=== PATIENT | female | born 1985 | race Hispanic/Latino ===

== ENCOUNTER 2021-09-02 16:57 | Inpatient (IN) | payer BC ==
[~2021-09-02] VITALS: Ht 160 cm; Wt 79.4 kg
[2021-09-02] MEDS ORDERED: ONDANSETRON HCL INJ 2MG/ML 2ML 2 MG/ML VIAL IV STA (17:20)
[2021-09-02] MEDS ORDERED: SODIUM CHLORIDE 0.9% 1000ML 1,000 ML IV SCH (17:30)
[2021-09-02] MEDS ORDERED: Morphine 2mg Syringe 2 MG/ML SYR IV ONE (17:30)
[2021-09-02] MEDS ORDERED: SODIUM CHLORIDE 0.9% 1000ML 1,000 ML ONE (17:36)
[2021-09-02] MEDS ORDERED: Morphine 2mg Syringe 2 MG/ML SYR ONE (17:38)
[2021-09-02 17:44] LABS: ALBUMIN 3.8 g/dL (3.5-5.0); ALBUMIN/GLOBULIN RATIO 0.5 (0.8-2.0); ALKALINE PHOSPHATASE 54 IU/L (40-150); ANION GAP 19.8 mmol/L (8-16); BLOOD UREA NITROGEN 9 mg/dL (7-26); BUN/CREATININE RATIO 13 (6-25); CALCIUM 9.3 mg/dL (8.4-10.2); CARBON DIOXIDE 16 mmol/L (22-29); CHLORIDE 94 mmol/L (98-107); CREATININE, SERUM 0.67 mg/dL (0.57-1.11); EST GLOMERULAR FILTRATION RATE 100 ML/MIN (60-); GLUCOSE 356 mg/dL (74-118); POTASSIUM 3.8 mmol/L (3.5-5.1); SODIUM 126 mmol/L (136-145)
[2021-09-02] MEDS ORDERED: SODIUM CHLORIDE 0.9% 1000ML 1,000 ML IV ONE ×2 (17:45→18:30)
[2021-09-02 17:49] LABS: AMYLASE 839 U/L (25-125)
[2021-09-02 18:10] LABS: ALANINE AMINOTRANSFERASE < 30 IU/L (0-55)
[2021-09-02 18:13] LABS: CREATINE KINASE MB 0.6 ng/mL (0-5.0)
[2021-09-02] MEDS ORDERED: IOPAMIDOL 370 MG/ML 200 ML INFUS..BTL INJ ONE (18:13)
[2021-09-02] MEDS ORDERED: SODIUM CHLORIDE 0.9% 50ML 50 ML ONE (18:13)
[2021-09-02 18:17] LABS: BASOPHILS % 0.3 % (0.0-1.0); EOSINOPHILS # (AUTO) 0.1 (0.0-0.4); EOSINOPHILS % 0.7 % (0.0-6.0); LYMPHOCYTES # (AUTO) 2.5 (1.0-3.2); LYMPHOCYTES % 22.3 % (18.0-39.1); MONOCYTES # (AUTO) 0.6 (0.2-0.8); NEUTROPHILS # (AUTO) 7.9 (2.1-6.9); NEUTROPHILS % 70.8 % (38.7-80.0)
[2021-09-02 18:19] LABS: HEMOGLOBIN 14.7 g/dL (12.0-16.0); RED BLOOD COUNT 4.79 x10e6/uL (3.6-5.1)
[2021-09-02 18:20] LABS: HEMATOCRIT 37.8 % (34.2-44.1); MEAN CORPUSCULAR HEMOGLOBIN 30.7 pg (28-32); MEAN CORPUSCULAR HGB CONC 98.9 g/dL (31-35); MEAN CORPUSCULAR VOLUME 78.9 fL (81-99); PLATELET COUNT 259 x10e3/uL (140-360); RED CELL DISTRIBUTION WIDTH 13.3 % (11.7-14.4)
[2021-09-02 18:27] LABS: LIPASE 2840 U/L (8-78)
[2021-09-02] MEDS ORDERED: HYDROMORPHONE 1MG/1ML INJ IV STA (18:28)
[2021-09-02] MEDS ORDERED: INSULIN REGULAR, HUMAN 3ML VL 100 UNIT in SODIUM CHLORIDE 0.9% 100 ML IV SCH ×2 (18:30)
[2021-09-02] MEDS ORDERED: MAGNESIUM SULF 1GRAM/DEXTROSE 100 ML IV PRN (18:30)
[2021-09-02] MEDS ORDERED: DEXTROSE 5%/0.45% SOD CHL 1,000 ML IV SCH (18:30)
[2021-09-02] MEDS ORDERED: Morphine 4mg Syringe 4 MG/ML INJ IV PRN (19:00)
[2021-09-02] MEDS: SODIUM CHLORIDE 0.9% 1000ML 1,000 ML IV SCH ×2 (19:00→22:50)
[2021-09-02] MEDS ORDERED: DEXTROSE 50% SYRINGE 50 ML IV PRN (19:15)
[2021-09-02] MEDS ORDERED: POTASSIUM CHLORIDE 20MEQ/100ML 100 ML INJ PRN (19:15)
[2021-09-02 19:16] LABS: CHOL/HDL RATIO 46.3 (3.0-3.6); CHOLESTEROL 694 MD/DL (0-199); HDL CHOLESTEROL 15 MG/DL (40-60)
[2021-09-02 19:33] LABS: TRIGLYCERIDES 4970 MG/DL (0-149)
[2021-09-02 20:52] LABS: CLARITY,URINE CLEAR (CLEAR); COLOR,URINE YELLOW (YELLOW); KETONES,URINE 2+ (NEGATIVE); LEUKOCYTE ESTERASE ,URINE NEGATIVE (NEGATIVE); NITRITE,URINE NEGATIVE (NEGATIVE); PROTEIN,URINE DIPSTICK 1+ (NEGATIVE)
[2021-09-02 20:53] LABS: URINE UROBILINOGEN 0.2 mg/dL (0.2 - 1)
[2021-09-02 20:56] LABS: BACTERIA,URINE FEW /HPF; EPITHELIAL CELLS,URINE FEW /LPF; RBC,URINE 0-5 /HPF (0-5); WBC,URINE (MAN) 0-5 /HPF (0-5)
[2021-09-02] MEDS ORDERED: POTASSIUM CHLORIDE 10MEQ EA PO PRN (21:00)
[2021-09-02] MEDS: FENOFIBRATE 145 MG TAB PO SCH (21:30)
[2021-09-02] MEDS: ONDANSETRON HCL INJ 2MG/ML 2ML 2 MG/ML VIAL IV PRN (21:36)
[2021-09-02] MEDS: HYDROMORPHONE 1MG/1ML INJ IV PRN (21:38)
[2021-09-02 22:58] LABS: ANION GAP 12.8 mmol/L (8-16); CALCIUM 7.3 mg/dL (8.4-10.2); CREATININE, SERUM 0.51 mg/dL (0.57-1.11); MAGNESIUM 1.5 MG/DL (1.3-2.1); POTASSIUM 3.8 mmol/L (3.5-5.1)
[2021-09-02 23:34] LABS: CREATINE KINASE < 7 IU/L (29-168)
[2021-09-02 23:40] VITALS: BP 141/82
[2021-09-03] VITALS (20 sets, daily range): BP systolic 86–164; BP diastolic 48–112
[2021-09-03] MEDS: DEXTROSE 5%/0.45% SOD CHL 1,000 ML IV SCH ×3 (02:03→20:59)
[2021-09-03] MEDS ORDERED: INSULIN REGULAR IN 0.9 % NACL 100 ML IV ONE (02:19)
[2021-09-03] MEDS: HYDROMORPHONE 1MG/1ML INJ IV PRN ×3 (04:21→21:00)
[2021-09-03] MEDS: ONDANSETRON HCL INJ 2MG/ML 2ML 2 MG/ML VIAL IV PRN ×3 (04:21→21:00)
[2021-09-03 05:07] LABS: ANION GAP 15.5 mmol/L (8-16); BLOOD UREA NITROGEN < 5 mg/dL (7-26); BUN/CREATININE RATIO 8 (6-25); CALCIUM 7.6 mg/dL (8.4-10.2); CARBON DIOXIDE 17 mmol/L (22-29); CHLORIDE 102 mmol/L (98-107); CREATININE, SERUM 0.61 mg/dL (0.57-1.11); EST GLOMERULAR FILTRATION RATE 112 ML/MIN (60-); GLUCOSE 174 mg/dL (74-118); MAGNESIUM 1.5 MG/DL (1.3-2.1); POTASSIUM 3.5 mmol/L (3.5-5.1); SODIUM 131 mmol/L (136-145)
[2021-09-03 05:50] LABS: BASOPHILS % 0.3 % (0.0-1.0); EOSINOPHILS % 0.2 % (0.0-6.0); HEMATOCRIT 33.6 % (34.2-44.1); HEMOGLOBIN 11.8 g/dL (12.0-16.0); LYMPHOCYTES # (AUTO) 1.8 (1.0-3.2); LYMPHOCYTES % 15.4 % (18.0-39.1); MEAN CORPUSCULAR HEMOGLOBIN 28.2 pg (28-32); MEAN CORPUSCULAR HGB CONC 35.1 g/dL (31-35); MEAN CORPUSCULAR VOLUME 80.4 fL (81-99); MONOCYTES # (AUTO) 0.5 (0.2-0.8); MONOCYTES % 3.9 % (4.4-11.3); NEUTROPHILS # (AUTO) 9.2 (2.1-6.9); NEUTROPHILS % 79.5 % (38.7-80.0); PLATELET COUNT 209 x10e3/uL (140-360); RED BLOOD COUNT 4.18 x10e6/uL (3.6-5.1); RED CELL DISTRIBUTION WIDTH 13.7 % (11.7-14.4)
[2021-09-03 06:15] LABS: ALANINE AMINOTRANSFERASE 19 IU/L (0-55); ALBUMIN/GLOBULIN RATIO 0.7 (0.8-2.0); ALKALINE PHOSPHATASE 45 IU/L (40-150); AMYLASE 188 U/L (25-125); ANION GAP 13.1 mmol/L (8-16); CALCIUM 7.7 mg/dL (8.4-10.2); CARBON DIOXIDE 20 mmol/L (22-29); CHLORIDE 101 mmol/L (98-107); CREATININE, SERUM 0.57 mg/dL (0.57-1.11); EST GLOMERULAR FILTRATION RATE 121 ML/MIN (60-); GLUCOSE 188 mg/dL (74-118); LIPASE 321 U/L (8-78); POTASSIUM 3.1 mmol/L (3.5-5.1); SODIUM 131 mmol/L (136-145)
[2021-09-03 06:16] LABS: BUN/CREATININE RATIO 9 (6-25)
[2021-09-03 06:43] LABS: CREATINE KINASE MB 0.9 ng/mL (0-5.0)
[2021-09-03 07:30] LABS: BLOOD UREA NITROGEN < 5 mg/dL (7-26)
[2021-09-03] MEDS: FENOFIBRATE 145 MG TAB PO SCH ×2 (08:02→09:00)
[2021-09-03] MEDS: INSULIN REGULAR, HUMAN 3ML VL 100 UNIT in SODIUM CHLORIDE 0.9% 100 ML IV PRN ×2 (08:03)
[2021-09-03] MEDS ORDERED: TRICOR145 MG PO (08:51)
[2021-09-03] MEDS ORDERED: METFORMIN HCL500 MG PO (08:51)
[2021-09-03] MEDS: POTASSIUM CHLORIDE 20MEQ/100ML 200 ML IV PRN (10:28)
[2021-09-03 10:58] LABS: ANION GAP 13.5 mmol/L (8-16); BLOOD UREA NITROGEN < 5 mg/dL (7-26); CALCIUM 7.7 mg/dL (8.4-10.2); CARBON DIOXIDE 21 mmol/L (22-29); CHLORIDE 102 mmol/L (98-107); CREATININE, SERUM 0.53 mg/dL (0.57-1.11); EST GLOMERULAR FILTRATION RATE 131 ML/MIN (60-); GLUCOSE 143 mg/dL (74-118); MAGNESIUM 1.9 MG/DL (1.3-2.1); SODIUM 134 mmol/L (136-145)
[2021-09-03 10:59] LABS: BUN/CREATININE RATIO 9 (6-25)
[2021-09-03 11:00] LABS: POTASSIUM 2.5 mmol/L (3.5-5.1)
[2021-09-03 15:44] LABS: ANION GAP 13.5 mmol/L (8-16); BLOOD UREA NITROGEN < 5 mg/dL (7-26); CALCIUM 7.9 mg/dL (8.4-10.2); CARBON DIOXIDE 22 mmol/L (22-29); CHLORIDE 103 mmol/L (98-107); CREATININE, SERUM 0.58 mg/dL (0.57-1.11); EST GLOMERULAR FILTRATION RATE 118 ML/MIN (60-); GLUCOSE 115 mg/dL (74-118); MAGNESIUM 2.1 MG/DL (1.3-2.1); POTASSIUM 3.5 mmol/L (3.5-5.1); SODIUM 135 mmol/L (136-145)
[2021-09-03 15:46] LABS: BUN/CREATININE RATIO 9 (6-25)
[2021-09-03 22:03] LABS: % IRON SATURATION 14 % (15-50); IRON 43 ug/dL (50-170); TOTAL IRON BINDING CAPACITY 318 ug/dL (261-478); TRANSFERRIN 227 mg/dL (180-382)
[2021-09-04] VITALS (11 sets, daily range): BP systolic 84–121; BP diastolic 49–82
[2021-09-04] MEDS: HYDROMORPHONE 1MG/1ML INJ IV PRN ×4 (01:42→21:28)
[2021-09-04] MEDS: ONDANSETRON HCL INJ 2MG/ML 2ML 2 MG/ML VIAL IV PRN ×3 (01:43→21:28)
[2021-09-04] MEDS: DEXTROSE 5%/0.45% SOD CHL 1,000 ML IV SCH (05:00)
[2021-09-04 05:37] LABS: BASOPHILS % 0.2 % (0.0-1.0); EOSINOPHILS # (AUTO) 0.1 (0.0-0.4); EOSINOPHILS % 0.6 % (0.0-6.0); HEMATOCRIT 33.2 % (34.2-44.1); HEMOGLOBIN 10.6 g/dL (12.0-16.0); LYMPHOCYTES # (AUTO) 3.1 (1.0-3.2); LYMPHOCYTES % 29.6 % (18.0-39.1); MEAN CORPUSCULAR HEMOGLOBIN 26.9 pg (28-32); MEAN CORPUSCULAR HGB CONC 31.9 g/dL (31-35); MEAN CORPUSCULAR VOLUME 84.3 fL (81-99); MONOCYTES # (AUTO) 0.8 (0.2-0.8); MONOCYTES % 7.1 % (4.4-11.3); NEUTROPHILS # (AUTO) 6.5 (2.1-6.9); NEUTROPHILS % 61.9 % (38.7-80.0); PLATELET COUNT 202 x10e3/uL (140-360); RED BLOOD COUNT 3.94 x10e6/uL (3.6-5.1)
[2021-09-04 06:09] LABS: ALANINE AMINOTRANSFERASE 28 IU/L (0-55); ALBUMIN 2.8 g/dL (3.5-5.0); ALBUMIN/GLOBULIN RATIO 0.8 (0.8-2.0); ALKALINE PHOSPHATASE 49 IU/L (40-150); AMYLASE 79 U/L (25-125); ANION GAP 10.9 mmol/L (8-16); BLOOD UREA NITROGEN < 5 mg/dL (7-26); CALCIUM 7.9 mg/dL (8.4-10.2); CARBON DIOXIDE 23 mmol/L (22-29); CHLORIDE 104 mmol/L (98-107); CREATININE, SERUM 0.54 mg/dL (0.57-1.11); EST GLOMERULAR FILTRATION RATE 128 ML/MIN (60-); GLUCOSE 108 mg/dL (74-118); LIPASE 88 U/L (8-78); SODIUM 135 mmol/L (136-145)
[2021-09-04 06:16] LABS: BUN/CREATININE RATIO 9 (6-25)
[2021-09-04 06:17] LABS: POTASSIUM 2.9 mmol/L (3.5-5.1)
[2021-09-04] MEDS ORDERED: POTASSIUM CHLORIDE 20MEQ/100ML 20 MEQ in POTASSIUM CHLORIDE 20MEQ/100ML 100 ML IV ONE (06:46)
[2021-09-04] MEDS ORDERED: POTASSIUM CHLORIDE 20MEQ/100ML 100 ML IV ONE (07:00)
[2021-09-04] MEDS: INSULIN REGULAR, HUMAN 3ML VL 100 UNIT in SODIUM CHLORIDE 0.9% 100 ML IV PRN ×2 (07:38)
[2021-09-04] MEDS: FENOFIBRATE 145 MG TAB PO SCH (08:04)
[2021-09-04] MEDS ORDERED: SODIUM CHLORIDE 0.9% 1000ML 1,000 ML ONE (10:50)
[2021-09-04] MEDS: SODIUM CHLORIDE 0.9% 1000ML 1,000 ML IV SCH ×2 (11:15→23:50)
[2021-09-04] MEDS ORDERED: INSULIN GLARGINE 100 UNITS/ML VIAL SQ SCH (11:30)
[2021-09-04] MEDS ORDERED: DEXTROSE 50% SYRINGE 50 ML IV PRN (12:15)
[2021-09-04] MEDS: POTASSIUM CHLORIDE 20MEQ/100ML 200 ML IV PRN (12:19)
[2021-09-04 14:18] LABS: ANION GAP 11.1 mmol/L (8-16); BLOOD UREA NITROGEN < 5 mg/dL (7-26); BUN/CREATININE RATIO 9 (6-25); CALCIUM 7.9 mg/dL (8.4-10.2); CARBON DIOXIDE 22 mmol/L (22-29); CHLORIDE 106 mmol/L (98-107); CREATININE, SERUM 0.57 mg/dL (0.57-1.11); EST GLOMERULAR FILTRATION RATE 121 ML/MIN (60-); GLUCOSE 143 mg/dL (74-118); POTASSIUM 3.1 mmol/L (3.5-5.1); SODIUM 136 mmol/L (136-145)
[2021-09-04] MEDS: INSULIN REGULAR, HUMAN 100 UNIT/1 ML SQ SCH ×2 (17:37→21:25)
[2021-09-04 20:50] LABS: ANION GAP 13.5 mmol/L (8-16); BLOOD UREA NITROGEN < 5 mg/dL (7-26); CALCIUM 7.9 mg/dL (8.4-10.2); CARBON DIOXIDE 21 mmol/L (22-29); CHLORIDE 106 mmol/L (98-107); CREATININE, SERUM 0.61 mg/dL (0.57-1.11); EST GLOMERULAR FILTRATION RATE 112 ML/MIN (60-); GLUCOSE 202 mg/dL (74-118); POTASSIUM 3.5 mmol/L (3.5-5.1); SODIUM 137 mmol/L (136-145)
[2021-09-04 20:54] LABS: BUN/CREATININE RATIO 8 (6-25)
[2021-09-05] VITALS (8 sets, daily range): BP systolic 110–133; BP diastolic 67–84
[2021-09-05] MEDS: ONDANSETRON HCL INJ 2MG/ML 2ML 2 MG/ML VIAL IV PRN ×3 (02:16→16:00)
[2021-09-05] MEDS: HYDROMORPHONE 1MG/1ML INJ IV PRN ×4 (02:17→22:16)
[2021-09-05 05:22] LABS: ANION GAP 11.5 mmol/L (8-16); CALCIUM 8.3 mg/dL (8.4-10.2); CARBON DIOXIDE 22 mmol/L (22-29); CHLORIDE 107 mmol/L (98-107); EST GLOMERULAR FILTRATION RATE 114 ML/MIN (60-); GLUCOSE 193 mg/dL (74-118); MAGNESIUM 1.9 MG/DL (1.3-2.1); POTASSIUM 3.5 mmol/L (3.5-5.1); SODIUM 137 mmol/L (136-145)
[2021-09-05 05:24] LABS: BUN/CREATININE RATIO 8 (6-25)
[2021-09-05 05:40] LABS: BLOOD UREA NITROGEN < 5 mg/dL (7-26)
[2021-09-05 06:03] LABS: AMYLASE 30 U/L (25-125); LIPASE 55 U/L (8-78)
[2021-09-05] MEDS: INSULIN REGULAR, HUMAN 100 UNIT/1 ML SQ SCH ×4 (07:30→21:36)
[2021-09-05] MEDS: IRON SUCROSE 100 MG in SODIUM CHLORIDE 0.9% 100 ML 100 ML IV SCH (08:51)
[2021-09-05] MEDS: FENOFIBRATE 145 MG TAB PO SCH (08:51)
[2021-09-06] VITALS: BP 148/84
[2021-09-06 04:00] VITALS: BP 132/90
[2021-09-06] MEDS: HYDROMORPHONE 1MG/1ML INJ IV PRN ×2 (04:25→09:30)
[2021-09-06] MEDS: INSULIN REGULAR, HUMAN 100 UNIT/1 ML SQ SCH ×2 (07:30→11:50)
[2021-09-06 07:59] VITALS: BP 145/87
[2021-09-06 08:24] VITALS: BP 145/87
[2021-09-06] MEDS: IRON SUCROSE 100 MG in SODIUM CHLORIDE 0.9% 100 ML 100 ML IV SCH (09:00)
[2021-09-06] MEDS: FENOFIBRATE 145 MG TAB PO SCH (09:18)
[2021-09-06] MEDS ORDERED: TRAMADOL HCL 50 MG TAB PO PRN (10:15)
[2021-09-06 11:13] VITALS: BP 127/91
[2021-09-06] MEDS ORDERED: NOVOLIN N100 UNIT/1 SC (12:13)
[2021-09-06] MEDS ORDERED: ONDANSETRON HCL 4 MG ORAL DISINTEGRATING TAB PO PRN (12:45)
[2021-09-07] MEDS ORDERED: PANTOPRAZOLE SOD 40 MG TABEC PO SCH (07:30)
== END 2021-09-06 13:20 | disposition home or self-care (01) | DRG 438 ==
LOC: ER 17:05 → ERHOLD 18:20 → ICU 23:24 → IMCU 09-03 13:45 → MED/SURG3 09-05 15:33
PROVIDERS: ADMIT Internal Medicine; ATTEND Internal Medicine
DX: K85.90 Acute pancreatitis without necrosis or infection, unspecified (principal); E11.10 Type 2 diabetes mellitus with ketoacidosis without coma; E87.1 Hypo-osmolality and hyponatremia; B17.9 Acute viral hepatitis, unspecified; Z79.4 Long term (current) use of insulin; Z20.822 Contact with and (suspected) exposure to COVID-19; E87.6 Hypokalemia
CPT/HCPCS: 36415; 51700; 71045; 74177; 80048; 80053; 80061; 81001; 82150; 82550; 82553; 82607; 82746; 82948; 83036; 83540; 83605; 83690; 83735; 84466; 84478; 84484; 84702; 85025; 85045; 87040; 93005; 94799; 96372; 99284; J1170; J1756; J1815; J1817; J2270; J2405; J3475; J3480; J7030; J7050; Q9967; U0002

== ENCOUNTER 2022-03-17 20:58 | Inpatient (IN) | payer BC ==
[~2022-03-17] VITALS: Ht 160 cm; Wt 81.6 kg
[~2022-03-17 20:58] MED LIST: METFORMIN HCL500 MG PO; NOVOLIN N100 UNIT/1 SC; TRICOR145 MG PO
[2022-03-17] MEDS ORDERED: ONDANSETRON HCL INJ 2MG/ML 2ML 2 MG/ML VIAL IV STA ×2 (21:05→23:48)
[2022-03-17] MEDS ORDERED: Morphine 4mg INJECTION 4 MG/ML INJ IV ONE (21:15)
[2022-03-17] MEDS ORDERED: SODIUM CHLORIDE 0.9% 1000ML 1,000 ML IV ONE (21:15)
[2022-03-17 21:54] LABS: BASOPHILS % 0.4 % (0.0-1.0); EOSINOPHILS # (AUTO) 0.2 (0.0-0.4); EOSINOPHILS % 2.1 % (0.0-6.0); HEMATOCRIT 35.4 % (34.2-44.1); HEMOGLOBIN 15.7 g/dL (12.0-16.0); LYMPHOCYTES # (AUTO) 1.7 (1.0-3.2); LYMPHOCYTES % 22.7 % (18.0-39.1); MEAN CORPUSCULAR HEMOGLOBIN 36.7 pg (28-32); MEAN CORPUSCULAR HGB CONC 44.4 g/dL (31-35); MEAN CORPUSCULAR VOLUME 82.7 fL (81-99); MONOCYTES # (AUTO) 0.8 (0.2-0.8); MONOCYTES % 10.1 % (4.4-11.3); NEUTROPHILS # (AUTO) 4.9 (2.1-6.9); NEUTROPHILS % 64.2 % (38.7-80.0); PLATELET COUNT 236 x10e3/uL (140-360); RED BLOOD COUNT 4.28 x10e6/uL (3.6-5.1); RED CELL DISTRIBUTION WIDTH 13.6 % (11.7-14.4)
[2022-03-17 22:07] LABS: CLARITY,URINE CLEAR (CLEAR); COLOR,URINE YELLOW (YELLOW); KETONES,URINE TRACE (NEGATIVE); LEUKOCYTE ESTERASE ,URINE NEGATIVE (NEGATIVE); NITRITE,URINE NEGATIVE (NEGATIVE); PROTEIN,URINE DIPSTICK NEGATIVE (NEGATIVE); URINE UROBILINOGEN 0.2 mg/dL (0.2 - 1)
[2022-03-17 22:13] LABS: ALBUMIN 3.7 g/dL (3.5-5.0); ALBUMIN/GLOBULIN RATIO 0.4 (0.8-2.0); ANION GAP 23.8 mmol/L (8-16); CALCIUM 9.4 mg/dL (8.4-10.2); CARBON DIOXIDE 15 mmol/L (22-29); CHLORIDE 91 mmol/L (98-107); GLUCOSE 295 mg/dL (74-118); POTASSIUM 3.8 mmol/L (3.5-5.1); SODIUM 126 mmol/L (136-145)
[2022-03-17 22:16] LABS: EPITHELIAL CELLS,URINE MANY /LPF
[2022-03-17 22:17] LABS: BACTERIA,URINE FEW /HPF; MUCUS,URINE MANY (RARE); RBC,URINE 0-5 /HPF (0-5); WBC,URINE (MAN) 0-5 /HPF (0-5)
[2022-03-17 23:01] LABS: ALANINE AMINOTRANSFERASE 34 IU/L (0-55)
[2022-03-17] MEDS ORDERED: SODIUM CHLORIDE 0.9% 1000ML 1,000 ML IV STA (23:09)
[2022-03-17 23:17] LABS: CREATININE, SERUM < 0.30 mg/dL (0.57-1.11)
[2022-03-17 23:24] LABS: BLOOD UREA NITROGEN < 10 mg/dL (7-26); BUN/CREATININE RATIO 33 (6-25)
[2022-03-17] MEDS ORDERED: Morphine 4mg INJECTION 4 MG/ML INJ ONE (23:59)
[2022-03-17] MEDS ORDERED: ONDANSETRON HCL INJ 2MG/ML 2ML 2 MG/ML VIAL ONE (23:59)
[2022-03-18] VITALS (11 sets, daily range): BP systolic 146–160; BP diastolic 83–92
[2022-03-18] MEDS ORDERED: Morphine 4mg INJECTION 4 MG/ML INJ IV ONE
[2022-03-18] MEDS ORDERED: DEXTROSE 50% SYRINGE 50 ML IV PRN (02:00)
[2022-03-18] MEDS ORDERED: PNEUMOCOCCAL VACCINE POLYVALENT 23 MCG/0.5 ML VIAL IM SCH (02:58)
[2022-03-18] MEDS: SODIUM CHLORIDE 0.9% 1000ML 1,000 ML IV SCH ×3 (03:00→15:14)
[2022-03-18] MEDS: Morphine 4mg INJECTION 4 MG/ML INJ IV PRN ×4 (04:05→20:02)
[2022-03-18] MEDS: ONDANSETRON HCL INJ 2MG/ML 2ML 2 MG/ML VIAL IV PRN ×4 (04:05→20:01)
[2022-03-18] MEDS ORDERED: IOPAMIDOL 370 MG/ML 100 ML INFUS..BTL INJ ONE (05:24)
[2022-03-18] MEDS: INSULIN REGULAR, HUMAN 100 UNIT/1 ML SQ SCH ×3 (06:40→18:00)
[2022-03-18 08:17] LABS: BASOPHILS % 0.3 % (0.0-1.0); EOSINOPHILS # (AUTO) 0.1 (0.0-0.4); EOSINOPHILS % 1.7 % (0.0-6.0); HEMOGLOBIN 13.9 g/dL (12.0-16.0); LYMPHOCYTES # (AUTO) 1.2 (1.0-3.2); LYMPHOCYTES % 15.9 % (18.0-39.1); MEAN CORPUSCULAR HEMOGLOBIN 36.1 pg (28-32); MEAN CORPUSCULAR HGB CONC 43.4 g/dL (31-35); MEAN CORPUSCULAR VOLUME 83.1 fL (81-99); MONOCYTES # (AUTO) 0.5 (0.2-0.8); MONOCYTES % 6.6 % (4.4-11.3); NEUTROPHILS # (AUTO) 5.4 (2.1-6.9); NEUTROPHILS % 74.7 % (38.7-80.0); PLATELET COUNT 187 x10e3/uL (140-360); RED BLOOD COUNT 3.85 x10e6/uL (3.6-5.1); RED CELL DISTRIBUTION WIDTH 13.5 % (11.7-14.4)
[2022-03-18 08:45] LABS: CHOL/HDL RATIO 59.5 (3.0-3.6); CHOLESTEROL 655 MD/DL (0-199); HDL CHOLESTEROL 11 MG/DL (40-60); LIPASE 99 U/L (8-78)
[2022-03-18 09:29] LABS: TRIGLYCERIDES 6025 MG/DL (0-149)
[2022-03-18 10:27] LABS: ALBUMIN 3.3 g/dL (3.5-5.0); ALBUMIN/GLOBULIN RATIO 0.4 (0.8-2.0); ANION GAP 25.2 mmol/L (8-16); BLOOD UREA NITROGEN < 5 mg/dL (7-26); CALCIUM 8.4 mg/dL (8.4-10.2); CARBON DIOXIDE 11 mmol/L (22-29); CHLORIDE 94 mmol/L (98-107); GLUCOSE 264 mg/dL (74-118); POTASSIUM 3.2 mmol/L (3.5-5.1); SODIUM 127 mmol/L (136-145)
[2022-03-18 10:46] LABS: ALANINE AMINOTRANSFERASE 39 IU/L (0-55)
[2022-03-18 10:56] LABS: ALKALINE PHOSPHATASE 35 IU/L (40-150); BUN/CREATININE RATIO 7 (6-25); CREATININE, SERUM 0.76 mg/dL (0.57-1.11)
[2022-03-18 14:08] LABS: CHOL/HDL RATIO 66.1 (3.0-3.6); CHOLESTEROL 661 MD/DL (0-199); HDL CHOLESTEROL 10 MG/DL (40-60)
[2022-03-18 14:40] LABS: TRIGLYCERIDES 6143 MG/DL (0-149)
[2022-03-18] MEDS ORDERED: PROMETHAZINE 12.5MG/ NACL 0.9% 12.5 MG/50 ML BAG IV PRN (15:00)
[2022-03-18] MEDS: KETOROLAC TROMETHAMINE 30 MG/ML VIAL IV PRN (15:14)
[2022-03-18] MEDS: DEXTROSE 5%/0.45% SOD CHL 1,000 ML IV SCH (15:14)
[2022-03-18] MEDS ORDERED: POTASSIUM CHLORIDE 20MEQ/100ML 200 ML IV ONE (15:15)
[2022-03-18] MEDS: INSULIN REGULAR, HUMAN 3ML VL 100 UNIT in SODIUM CHLORIDE 0.9% 99 ML IV SCH ×2 (18:00)
[2022-03-18 18:19] LABS: HDL CHOLESTEROL 8 MG/DL (40-60)
[2022-03-18 18:36] LABS: TRIGLYCERIDES 5398 MG/DL (0-149)
[2022-03-18 18:37] LABS: CHOL/HDL RATIO 81.4 (3.0-3.6); CHOLESTEROL 651 MD/DL (0-199)
[2022-03-18] MEDS ORDERED: POTASSIUM CHLORIDE 20MEQ/100ML 200 ML ONE (21:56)
[2022-03-19] VITALS (12 sets, daily range): BP systolic 135–152; BP diastolic 75–90
[2022-03-19] MEDS: SODIUM CHLORIDE 0.9% 1000ML 1,000 ML IV SCH ×3 (00:30→16:30)
[2022-03-19] MEDS: ONDANSETRON HCL INJ 2MG/ML 2ML 2 MG/ML VIAL IV PRN ×3 (02:04→22:49)
[2022-03-19] MEDS: Morphine 4mg INJECTION 4 MG/ML INJ IV PRN ×2 (02:04→22:49)
[2022-03-19] MEDS: INSULIN REGULAR, HUMAN 100 UNIT/1 ML SQ SCH ×5 (06:00→23:43)
[2022-03-19 06:13] LABS: BASOPHILS % 0.2 % (0.0-1.0); EOSINOPHILS # (AUTO) 0.1 (0.0-0.4); EOSINOPHILS % 0.9 % (0.0-6.0); HEMATOCRIT 31.9 % (34.2-44.1); HEMOGLOBIN 11.8 g/dL (12.0-16.0); LYMPHOCYTES % 16.3 % (18.0-39.1); MEAN CORPUSCULAR HEMOGLOBIN 30.5 pg (28-32); MEAN CORPUSCULAR VOLUME 82.4 fL (81-99); MONOCYTES # (AUTO) 0.5 (0.2-0.8); MONOCYTES % 7.4 % (4.4-11.3); NEUTROPHILS # (AUTO) 4.7 (2.1-6.9); NEUTROPHILS % 74.1 % (38.7-80.0); PLATELET COUNT 183 x10e3/uL (140-360); RED BLOOD COUNT 3.87 x10e6/uL (3.6-5.1); RED CELL DISTRIBUTION WIDTH 13.3 % (11.7-14.4)
[2022-03-19 06:41] LABS: ALANINE AMINOTRANSFERASE 92 IU/L (0-55); ALBUMIN 2.9 g/dL (3.5-5.0); ALBUMIN/GLOBULIN RATIO 0.6 (0.8-2.0); ALKALINE PHOSPHATASE 65 IU/L (40-150); AMYLASE 64 U/L (25-125); BLOOD UREA NITROGEN < 5 mg/dL (7-26); CALCIUM 8.1 mg/dL (8.4-10.2); CARBON DIOXIDE 22 mmol/L (22-29); CHLORIDE 95 mmol/L (98-107); CHOLESTEROL 551 MD/DL (0-199); CREATININE, SERUM 0.51 mg/dL (0.57-1.11); GLUCOSE 234 mg/dL (74-118); LIPASE 174 U/L (8-78); MAGNESIUM 1.6 MG/DL (1.3-2.1); SODIUM 130 mmol/L (136-145)
[2022-03-19 06:48] LABS: BUN/CREATININE RATIO 10 (6-25); HDL CHOLESTEROL < 5 MG/DL (40-60)
[2022-03-19] MEDS ORDERED: POTASSIUM CHLORIDE 10MEQ/100ML 400 ML IV ONE (07:15)
[2022-03-19] MEDS ORDERED: MAGNESIUM SULFATE 2GM/50ML 50 ML IV ONE ×2 (07:15→13:18)
[2022-03-19 07:22] LABS: TRIGLYCERIDES 3718 MG/DL (0-149)
[2022-03-19] MEDS ORDERED: POTASSIUM CHLORIDE 20 MEQ TAB CR PO ONE ×2 (07:30→13:16)
[2022-03-19] MEDS: DEXTROSE 5%/0.45% SOD CHL 1,000 ML IV SCH (13:16)
[2022-03-19] MEDS ORDERED: POTASSIUM CHLORIDE 10MEQ/100ML 400 ML ONE (13:17)
[2022-03-19 18:38] LABS: ANION GAP 14.2 mmol/L (8-16); CALCIUM 8.3 mg/dL (8.4-10.2); CARBON DIOXIDE 23 mmol/L (22-29); CHLORIDE 98 mmol/L (98-107); GLUCOSE 197 mg/dL (74-118); POTASSIUM 4.2 mmol/L (3.5-5.1); SODIUM 131 mmol/L (136-145)
[2022-03-19 18:43] LABS: BLOOD UREA NITROGEN < 2 mg/dL (7-26)
[2022-03-19 18:54] LABS: CHOL/HDL RATIO 35.4 (3.0-3.6); CHOLESTEROL 566 MD/DL (0-199); HDL CHOLESTEROL 16 MG/DL (40-60)
[2022-03-19 19:26] LABS: TRIGLYCERIDES 3079 MG/DL (0-149)
[2022-03-19] MEDS: INSULIN REGULAR, HUMAN 3ML VL 100 UNIT in SODIUM CHLORIDE 0.9% 99 ML IV SCH ×2 (22:44)
[2022-03-20] VITALS (23 sets, daily range): BP systolic 112–147; BP diastolic 66–122
[2022-03-20] MEDS: SODIUM CHLORIDE 0.9% 1000ML 1,000 ML IV SCH ×3 (00:30→16:30)
[2022-03-20] MEDS: ONDANSETRON HCL INJ 2MG/ML 2ML 2 MG/ML VIAL IV PRN (05:08)
[2022-03-20] MEDS: Morphine 4mg INJECTION 4 MG/ML INJ IV PRN (05:08)
[2022-03-20 05:14] LABS: BASOPHILS % 0.2 % (0.0-1.0); EOSINOPHILS # (AUTO) 0.1 (0.0-0.4); EOSINOPHILS % 1.1 % (0.0-6.0); HEMATOCRIT 32.9 % (34.2-44.1); HEMOGLOBIN 10.9 g/dL (12.0-16.0); LYMPHOCYTES # (AUTO) 1.3 (1.0-3.2); LYMPHOCYTES % 23.8 % (18.0-39.1); MEAN CORPUSCULAR HEMOGLOBIN 27.7 pg (28-32); MEAN CORPUSCULAR HGB CONC 33.1 g/dL (31-35); MEAN CORPUSCULAR VOLUME 83.5 fL (81-99); MONOCYTES # (AUTO) 0.5 (0.2-0.8); MONOCYTES % 9.4 % (4.4-11.3); NEUTROPHILS # (AUTO) 3.6 (2.1-6.9); NEUTROPHILS % 64.4 % (38.7-80.0); PLATELET COUNT 175 x10e3/uL (140-360); RED BLOOD COUNT 3.94 x10e6/uL (3.6-5.1); RED CELL DISTRIBUTION WIDTH 13.6 % (11.7-14.4)
[2022-03-20 05:32] LABS: ALANINE AMINOTRANSFERASE 227 IU/L (0-55); ALBUMIN 2.7 g/dL (3.5-5.0); ALBUMIN/GLOBULIN RATIO 0.7 (0.8-2.0); ALKALINE PHOSPHATASE 111 IU/L (40-150); ANION GAP 13.9 mmol/L (8-16); CALCIUM 7.7 mg/dL (8.4-10.2); CARBON DIOXIDE 23 mmol/L (22-29); CHLORIDE 99 mmol/L (98-107); CREATININE, SERUM 0.65 mg/dL (0.57-1.11); MAGNESIUM 1.8 MG/DL (1.3-2.1); SODIUM 133 mmol/L (136-145)
[2022-03-20 05:58] LABS: AMYLASE 33 U/L (25-125); LIPASE 77 U/L (8-78)
[2022-03-20] MEDS: INSULIN REGULAR, HUMAN 100 UNIT/1 ML SQ SCH ×3 (06:00→18:17)
[2022-03-20 06:05] LABS: BLOOD UREA NITROGEN < 2 mg/dL (7-26)
[2022-03-20 06:08] LABS: POTASSIUM 2.9 mmol/L (3.5-5.1)
[2022-03-20 06:09] LABS: GLUCOSE 447 mg/dL (74-118)
[2022-03-20] MEDS: DEXTROSE 5%/0.45% SOD CHL 1,000 ML IV SCH ×3 (06:25→21:32)
[2022-03-20 06:29] LABS: CHOL/HDL RATIO 32.1 (3.0-3.6); CHOLESTEROL 514 MD/DL (0-199); HDL CHOLESTEROL 16 MG/DL (40-60)
[2022-03-20 07:08] LABS: TRIGLYCERIDES 2311 MG/DL (0-149)
[2022-03-20] MEDS ORDERED: POTASSIUM CHLORIDE 20 MEQ TAB CR PO ONE (07:15)
[2022-03-20] MEDS: POTASSIUM CHLORIDE 20MEQ/100ML 100 ML IV SCH ×2 (08:31→10:29)
[2022-03-20] MEDS: KETOROLAC TROMETHAMINE 30 MG/ML VIAL IV PRN ×2 (10:51→21:41)
[2022-03-20 17:20] LABS: ANION GAP 14.4 mmol/L (8-16); BLOOD UREA NITROGEN < 5 mg/dL (7-26); CALCIUM 8.2 mg/dL (8.4-10.2); CARBON DIOXIDE 23 mmol/L (22-29); CHLORIDE 101 mmol/L (98-107); CREATININE, SERUM 0.58 mg/dL (0.57-1.11); GLUCOSE 241 mg/dL (74-118); POTASSIUM 3.4 mmol/L (3.5-5.1); SODIUM 135 mmol/L (136-145)
[2022-03-20 17:21] LABS: BUN/CREATININE RATIO 9 (6-25)
[2022-03-20 17:32] LABS: CHOL/HDL RATIO 28.8 (3.0-3.6); CHOLESTEROL 519 MD/DL (0-199); HDL CHOLESTEROL 18 MG/DL (40-60)
[2022-03-20 17:46] LABS: TRIGLYCERIDES 2096 MG/DL (0-149)
[2022-03-20] MEDS: INSULIN REGULAR, HUMAN 3ML VL 100 UNIT in SODIUM CHLORIDE 0.9% 99 ML IV SCH ×2 (18:18)
[2022-03-21] VITALS (23 sets, daily range): BP systolic 110–154; BP diastolic 65–116
[2022-03-21] MEDS: SODIUM CHLORIDE 0.9% 1000ML 1,000 ML IV SCH ×3 (00:30→16:30)
[2022-03-21] MEDS: Morphine 4mg INJECTION 4 MG/ML INJ IV PRN ×4 (03:36→20:27)
[2022-03-21 05:17] LABS: BASOPHILS % 0.3 % (0.0-1.0); EOSINOPHILS # (AUTO) 0.1 (0.0-0.4); EOSINOPHILS % 1.5 % (0.0-6.0); HEMATOCRIT 36.6 % (34.2-44.1); HEMOGLOBIN 11.8 g/dL (12.0-16.0); LYMPHOCYTES # (AUTO) 1.3 (1.0-3.2); LYMPHOCYTES % 19.3 % (18.0-39.1); MEAN CORPUSCULAR HEMOGLOBIN 26.9 pg (28-32); MEAN CORPUSCULAR HGB CONC 32.2 g/dL (31-35); MEAN CORPUSCULAR VOLUME 83.4 fL (81-99); MONOCYTES # (AUTO) 0.5 (0.2-0.8); MONOCYTES % 7.5 % (4.4-11.3); NEUTROPHILS # (AUTO) 4.8 (2.1-6.9); NEUTROPHILS % 70.5 % (38.7-80.0); PLATELET COUNT 203 x10e3/uL (140-360); RED BLOOD COUNT 4.39 x10e6/uL (3.6-5.1); RED CELL DISTRIBUTION WIDTH 13.8 % (11.7-14.4)
[2022-03-21 05:45] LABS: ALANINE AMINOTRANSFERASE 227 IU/L (0-55); ALBUMIN 3.1 g/dL (3.5-5.0); ALBUMIN/GLOBULIN RATIO 0.7 (0.8-2.0); ALKALINE PHOSPHATASE 131 IU/L (40-150); ANION GAP 15.1 mmol/L (8-16); BLOOD UREA NITROGEN < 5 mg/dL (7-26); CALCIUM 8.9 mg/dL (8.4-10.2); CARBON DIOXIDE 24 mmol/L (22-29); CHLORIDE 99 mmol/L (98-107); CREATININE, SERUM 0.54 mg/dL (0.57-1.11); GLUCOSE 142 mg/dL (74-118); MAGNESIUM 1.9 MG/DL (1.3-2.1); POTASSIUM 3.1 mmol/L (3.5-5.1); SODIUM 135 mmol/L (136-145)
[2022-03-21 05:46] LABS: BUN/CREATININE RATIO 9 (6-25)
[2022-03-21 05:59] LABS: CHOL/HDL RATIO 24.7 (3.0-3.6); CHOLESTEROL 518 MD/DL (0-199); HDL CHOLESTEROL 21 MG/DL (40-60)
[2022-03-21] MEDS: INSULIN REGULAR, HUMAN 100 UNIT/1 ML SQ SCH ×2 (06:00)
[2022-03-21 06:13] LABS: TRIGLYCERIDES 1617 MG/DL (0-149)
[2022-03-21] MEDS: DEXTROSE 5%/0.45% SOD CHL 1,000 ML IV SCH ×2 (08:06→17:32)
[2022-03-21] MEDS ORDERED: POTASSIUM CHLORIDE 20MEQ/100ML 200 ML IV ONE (10:30)
[2022-03-21] MEDS: INSULIN REGULAR, HUMAN 3ML VL 100 UNIT in SODIUM CHLORIDE 0.9% 99 ML IV SCH ×4 (11:31→22:11)
[2022-03-21 18:04] LABS: ANION GAP 15.4 mmol/L (8-16); BLOOD UREA NITROGEN < 5 mg/dL (7-26); CALCIUM 9.1 mg/dL (8.4-10.2); CARBON DIOXIDE 24 mmol/L (22-29); CHLORIDE 99 mmol/L (98-107); CREATININE, SERUM 0.54 mg/dL (0.57-1.11); GLUCOSE 159 mg/dL (74-118); POTASSIUM 3.4 mmol/L (3.5-5.1); SODIUM 135 mmol/L (136-145)
[2022-03-21 18:06] LABS: BUN/CREATININE RATIO 9 (6-25)
[2022-03-22] VITALS (19 sets, daily range): BP systolic 103–152; BP diastolic 55–89
[2022-03-22] MEDS: SODIUM CHLORIDE 0.9% 1000ML 1,000 ML IV SCH ×2 (00:30→08:30)
[2022-03-22] MEDS: Morphine 4mg INJECTION 4 MG/ML INJ IV PRN ×2 (01:30→05:33)
[2022-03-22 05:42] LABS: BASOPHILS % 0.4 % (0.0-1.0); EOSINOPHILS # (AUTO) 0.1 (0.0-0.4); EOSINOPHILS % 1.7 % (0.0-6.0); HEMATOCRIT 35.9 % (34.2-44.1); HEMOGLOBIN 11.9 g/dL (12.0-16.0); LYMPHOCYTES # (AUTO) 2.4 (1.0-3.2); LYMPHOCYTES % 32.2 % (18.0-39.1); MEAN CORPUSCULAR HGB CONC 33.1 g/dL (31-35); MEAN CORPUSCULAR VOLUME 81.4 fL (81-99); MONOCYTES # (AUTO) 0.8 (0.2-0.8); NEUTROPHILS # (AUTO) 4.1 (2.1-6.9); NEUTROPHILS % 54.5 % (38.7-80.0); PLATELET COUNT 227 x10e3/uL (140-360); RED BLOOD COUNT 4.41 x10e6/uL (3.6-5.1); RED CELL DISTRIBUTION WIDTH 14.2 % (11.7-14.4)
[2022-03-22 05:53] LABS: ALANINE AMINOTRANSFERASE 203 IU/L (0-55); ALBUMIN/GLOBULIN RATIO 0.8 (0.8-2.0); ALKALINE PHOSPHATASE 130 IU/L (40-150); ANION GAP 14.9 mmol/L (8-16); BLOOD UREA NITROGEN < 5 mg/dL (7-26); CALCIUM 8.9 mg/dL (8.4-10.2); CARBON DIOXIDE 25 mmol/L (22-29); CHLORIDE 100 mmol/L (98-107); CREATININE, SERUM 0.53 mg/dL (0.57-1.11); GLUCOSE 101 mg/dL (74-118); MAGNESIUM 1.6 MG/DL (1.3-2.1); SODIUM 137 mmol/L (136-145)
[2022-03-22 05:59] LABS: BUN/CREATININE RATIO 9 (6-25)
[2022-03-22 06:00] LABS: POTASSIUM 2.9 mmol/L (3.5-5.1)
[2022-03-22] MEDS: DEXTROSE 5%/0.45% SOD CHL 1,000 ML IV SCH (06:35)
[2022-03-22] MEDS ORDERED: POTASSIUM CHLORIDE 20 MEQ TAB CR PO ONE (07:10)
[2022-03-22] MEDS: POTASSIUM CHLORIDE 20 MEQ TAB CR PO SCH ×3 (07:31→12:20)
[2022-03-22] MEDS ORDERED: DEXTROSE 50% SYRINGE 50 ML IV PRN (13:00)
[2022-03-22] MEDS: KETOROLAC TROMETHAMINE 30 MG/ML VIAL IV PRN ×2 (14:41→21:44)
[2022-03-22] MEDS: INSULIN REGULAR, HUMAN 100 UNIT/1 ML SQ SCH (16:10)
[2022-03-22 18:55] LABS: ANION GAP 17.9 mmol/L (8-16); BLOOD UREA NITROGEN < 5 mg/dL (7-26); CALCIUM 9.4 mg/dL (8.4-10.2); CARBON DIOXIDE 23 mmol/L (22-29); CHLORIDE 97 mmol/L (98-107); GLUCOSE 293 mg/dL (74-118); POTASSIUM 4.9 mmol/L (3.5-5.1); SODIUM 133 mmol/L (136-145)
[2022-03-22 18:56] LABS: BUN/CREATININE RATIO 7 (6-25)
[2022-03-22] MEDS ORDERED: INSULIN GLARGINE 100 UNITS/ML VIAL SQ SCH (21:00)
[2022-03-22] MEDS: ONDANSETRON HCL INJ 2MG/ML 2ML 2 MG/ML VIAL IV PRN (21:44)
[2022-03-22] MEDS ORDERED: HYDROCODONE/APAP 7.5MG-325MG 1 EA TAB PO PRN (23:45)
[2022-03-23] VITALS: BP 134/81
[2022-03-23] MEDS: INSULIN REGULAR, HUMAN 100 UNIT/1 ML SQ SCH ×3 (00:17→12:28)
[2022-03-23 04:00] VITALS: BP 134/86
[2022-03-23 06:36] VITALS: BP 134/86
[2022-03-23 07:45] LABS: BASOPHILS % 0.4 % (0.0-1.0); EOSINOPHILS # (AUTO) 0.2 (0.0-0.4); EOSINOPHILS % 2.5 % (0.0-6.0); HEMATOCRIT 34.9 % (34.2-44.1); HEMOGLOBIN 11.1 g/dL (12.0-16.0); LYMPHOCYTES # (AUTO) 2.6 (1.0-3.2); MEAN CORPUSCULAR HGB CONC 31.8 g/dL (31-35); MEAN CORPUSCULAR VOLUME 84.9 fL (81-99); MONOCYTES # (AUTO) 0.5 (0.2-0.8); MONOCYTES % 7.7 % (4.4-11.3); NEUTROPHILS # (AUTO) 3.4 (2.1-6.9); NEUTROPHILS % 49.7 % (38.7-80.0); PLATELET COUNT 190 x10e3/uL (140-360); RED BLOOD COUNT 4.11 x10e6/uL (3.6-5.1); RED CELL DISTRIBUTION WIDTH 13.9 % (11.7-14.4)
[2022-03-23 08:05] LABS: ANION GAP 13.6 mmol/L (8-16); BLOOD UREA NITROGEN 7 mg/dL (7-26); BUN/CREATININE RATIO 12 (6-25); CALCIUM 8.4 mg/dL (8.4-10.2); CARBON DIOXIDE 25 mmol/L (22-29); CHLORIDE 101 mmol/L (98-107); CHOL/HDL RATIO 19.5 (3.0-3.6); CHOLESTEROL 371 MD/DL (0-199); CREATININE, SERUM 0.57 mg/dL (0.57-1.11); GLUCOSE 250 mg/dL (74-118); HDL CHOLESTEROL 19 MG/DL (40-60); POTASSIUM 3.6 mmol/L (3.5-5.1); SODIUM 136 mmol/L (136-145); TRIGLYCERIDES 978 MG/DL (0-149)
[2022-03-23 08:08] VITALS: BP 145/85
[2022-03-23] MEDS ORDERED: FENOFIBRATE 145 MG TAB PO SCH (09:00)
[2022-03-23 09:30] VITALS: BP 145/85
[2022-03-23] MEDS ORDERED: POTASSIUM CHLORIDE 20 MEQ TAB CR PO ONE (09:45)
[2022-03-23] MEDS ORDERED: ONDANSETRON HCL 4 MG ORAL DISINTEGRATING TAB PO PRN (12:15)
[2022-03-23 12:36] VITALS: BP 157/91
[2022-03-23] MEDS ORDERED: INSULIN GLARGINE 100 UNITS/ML VIAL SQ SCH (21:00)
== END 2022-03-23 17:20 | disposition home or self-care (01) | DRG 438 ==
LOC: ER 21:23 → ERHOLD 03-18 00:34 → MED/SURG3 03-18 02:29 → ICU 03-18 15:45 → MED/SURG3 03-22 14:23
PROVIDERS: ADMIT Internal Medicine; ATTEND Internal Medicine
PROC: 8E0ZXY6 Isolation (ICD-10-PCS; principal; 2022-03-18)
PROC: 02HV33Z Insertion of Infusion Device into Superior Vena Cava, Percutaneous Approach (ICD-10-PCS; 2022-03-18)
DX: K85.90 Acute pancreatitis without necrosis or infection, unspecified (principal); E11.10 Type 2 diabetes mellitus with ketoacidosis without coma; U07.1 COVID-19; E87.1 Hypo-osmolality and hyponatremia; E78.1 Pure hyperglyceridemia; Z68.31 Body mass index [BMI] 31.0-31.9, adult; E11.69 Type 2 diabetes mellitus with other specified complication; E78.5 Hyperlipidemia, unspecified; Z79.4 Long term (current) use of insulin; E87.6 Hypokalemia; J44.9 Chronic obstructive pulmonary disease, unspecified
CPT/HCPCS: 36415; 36569; 71045; 74177; 80048; 80053; 80061; 81001; 81025; 82150; 82947; 82948; 83690; 83735; 83930; 83935; 84300; 84478; 85025; 99284; J1817; J1885; J2270; J2405; J2550; J3475; J3480; J7030; J7050; Q9967

== ENCOUNTER 2024-01-13 16:54 | Emergency (ER) | payer BC, OTHER ==
[~2024-01-13] VITALS: Ht 160 cm; Wt 77.1 kg
[~2024-01-13 16:54] MED LIST changes: +ACYCLOVIR800 MG PO
[2024-01-13 18:01] VITALS: TEMP 98.8
[2024-01-13 18:53] LABS: BASOPHILS % 0.3 % (0.0-1.0); EOSINOPHILS # (AUTO) 0.1 (0.0-0.4); EOSINOPHILS % 1.4 % (0.0-6.0); HEMATOCRIT 37.5 % (34.2-44.1); HEMOGLOBIN 12.4 g/dL (12.0-16.0); LYMPHOCYTES # (AUTO) 2.1 (1.0-3.2); LYMPHOCYTES % 28.8 % (18.0-39.1); MEAN CORPUSCULAR HEMOGLOBIN 27.6 pg (28-32); MEAN CORPUSCULAR HGB CONC 33.1 g/dL (31-35); MEAN CORPUSCULAR VOLUME 83.5 fL (81-99); MONOCYTES # (AUTO) 0.5 (0.2-0.8); MONOCYTES % 6.5 % (4.4-11.3); NEUTROPHILS # (AUTO) 4.6 (2.1-6.9); NEUTROPHILS % 62.5 % (38.7-80.0); PLATELET COUNT 224 x10e3/uL (140-360); RED BLOOD COUNT 4.49 x10e6/uL (3.6-5.1); RED CELL DISTRIBUTION WIDTH 13.8 % (11.7-14.4)
[2024-01-13 19:12] LABS: ALANINE AMINOTRANSFERASE 23 IU/L (0-55); ALBUMIN 3.4 g/dL (3.5-5.0); ALBUMIN/GLOBULIN RATIO 0.8 (0.8-2.0); ALKALINE PHOSPHATASE 75 IU/L (40-150); ANION GAP 17.9 mmol/L (8-16); BILIRUBIN,TOTAL 0.3 mg/dL (0.2-1.2); BLOOD UREA NITROGEN 8 mg/dL (7-26); BUN/CREATININE RATIO 11 (6-25); CALCIUM 9.3 mg/dL (8.4-10.2); CARBON DIOXIDE 21 mmol/L (22-29); CHLORIDE 99 mmol/L (98-107); CREATINE KINASE 25 IU/L (29-168); CREATININE, SERUM 0.72 mg/dL (0.57-1.11); EST GLOMERULAR FILTRATION RATE 110 ML/MIN (>=60); GLUCOSE 353 mg/dL (74-118); POTASSIUM 3.9 mmol/L (3.5-5.1); SODIUM 134 mmol/L (136-145); TOTAL PROTEIN 7.9 g/dL (6.5-8.1)
[2024-01-13 19:15] LABS: INFLUENZAE A&B ANTIGEN (RAPID) NEGATIVE (NEGATIVE); RESPIRATORY SYNC. VIRUS NEGATIVE (NEGATIVE)
[2024-01-13 19:18] LABS: TROPONIN I < 0.001 ng/mL (0-0.300)
[2024-01-13 19:23] VITALS: PULSE 101; RESP 20; O2SAT 97
[2024-01-13] MEDS: ALBUTEROL/IPRATROPIUM 3 ML NEB NEB STA (19:25)
[2024-01-13 19:39] VITALS: PULSE 102; RESP 20
[2024-01-13] MEDS ORDERED: AZITHROMYCIN250 MG PO (20:32)
[2024-01-13] MEDS ORDERED: VENTOLIN HFA18 GM INH (20:32)
[2024-01-13] MEDS ORDERED: PREDNISONE20 MG PO (20:32)
[2024-01-13] MEDS: SODIUM CHLORIDE 0.9% 1000ML 1,000 ML IV STA (20:32)
[2024-01-13 20:36] VITALS: PULSE 99; RESP 20; O2SAT 99
== END 2024-01-13 20:59 | disposition home or self-care (01) ==
LOC: ER 18:15
DX: J18.9 Pneumonia, unspecified organism (principal); R07.9 Chest pain, unspecified; E11.9 Type 2 diabetes mellitus without complications; E78.5 Hyperlipidemia, unspecified; Z79.84 Long term (current) use of oral hypoglycemic drugs; Z79.4 Long term (current) use of insulin
CPT/HCPCS: 36415; 71260; 80053; 82550; 83690; 83880; 84484; 84702; 85025; 87400; 87420; 93005; 94640; 94799; 99284; J7030; U0002

== ENCOUNTER 2024-10-01 02:55 | Inpatient (IN) | payer SELFPAY ==
[2024-10-01] VITALS (14 sets, daily range): BP systolic 51–158; BP diastolic 17–96; PULSE 90–103; RESP 11–18; TEMP 97.3–99; O2SAT 96–100
[~2024-10-01] VITALS: Ht 160 cm; Wt 77.1 kg
[~2024-10-01 02:55] MED LIST changes: +AMPICILLIN SODIU1 GM PO; +AZITHROMYCIN250 MG PO; +PREDNISONE20 MG PO; +VENTOLIN HFA18 GM INH
[2024-10-01] MEDS: SODIUM CHLORIDE 0.9% 1000ML 1,000 ML IV ONE (03:11)
[2024-10-01 03:14] LABS: BASOPHILS % 0.4 % (0.0-1.0); EOSINOPHILS # (AUTO) 0.1 (0.0-0.4); EOSINOPHILS % 0.8 % (0.0-6.0); LYMPHOCYTES # (AUTO) 2.8 (1.0-3.2); LYMPHOCYTES % 34.2 % (18.0-39.1); MONOCYTES # (AUTO) 0.4 (0.2-0.8); MONOCYTES % 4.5 % (4.4-11.3); NEUTROPHILS # (AUTO) 4.9 (2.1-6.9); NEUTROPHILS % 59.3 % (38.7-80.0); PLATELET COUNT 260 x10e3/uL (140-360); WHITE BLOOD COUNT 8.24 x10e3/uL (4.8-10.8)
[2024-10-01] MEDS: HALOPERIDOL LACTATE 5 MG/ML VIAL IV ONE (03:31)
[2024-10-01] MEDS: Morphine 4mg INJECTION 4 MG/ML INJ IV ONE (03:32)
[2024-10-01 03:38] LABS: BILIRUBIN,URINE NEGATIVE (NEGATIVE); CLARITY,URINE CLEAR (CLEAR); COLOR,URINE YELLOW (YELLOW); GLUCOSE, URINE 500 (NEGATIVE); KETONES,URINE 2+ (NEGATIVE); LEUKOCYTE ESTERASE ,URINE NEGATIVE (NEGATIVE); NITRITE,URINE NEGATIVE (NEGATIVE); PH,URINE 5.5 (5 - 7); PROTEIN,URINE DIPSTICK >=300 (NEGATIVE); URINE UROBILINOGEN 0.2 mg/dL (0.2 - 1)
[2024-10-01 03:39] LABS: BACTERIA,URINE MANY /HPF; RBC,URINE 21-50 /HPF (0-5)
[2024-10-01 03:40] LABS: EPITHELIAL CELLS,URINE MODERATE /LPF
[2024-10-01 03:51] LABS: ALBUMIN/GLOBULIN RATIO 0.6 (0.8-2.0); ANION GAP 32.2 mmol/L (8-16); CALCIUM 9.4 mg/dL (8.4-10.2); CREATININE, SERUM 0.76 mg/dL (0.57-1.11); POTASSIUM 4.2 mmol/L (3.5-5.1); TOTAL PROTEIN 10.7 g/dL (6.5-8.1)
[2024-10-01 03:54] LABS: CHOL/HDL RATIO 14.3 (3.0-3.6); CHOLESTEROL 429 MD/DL (0-199); HDL CHOLESTEROL 30 MG/DL (40-60); LIPASE 68 U/L (8-78)
[2024-10-01 04:01] LABS: TROPONIN I < 0.001 ng/mL (0-0.300)
[2024-10-01 04:14] LABS: BILIRUBIN,TOTAL 0.3 mg/dL (0.2-1.2)
[2024-10-01] MEDS ORDERED: POTASSIUM CHLORIDE 20MEQ/100ML 200 ML IV PRN ×2 (04:15→18:00)
[2024-10-01] MEDS: SODIUM CHLORIDE 0.9% 1000ML 1,000 ML IV SCH (04:38)
[2024-10-01 04:39] LABS: TRIGLYCERIDES 4178 MG/DL (0-149)
[2024-10-01] MEDS: INSULIN REGULAR, HUMAN 3ML VL 100 UNIT in SODIUM CHLORIDE 0.9% 100 ML IV SCH (04:39)
[2024-10-01 04:50] LABS: HEMATOCRIT 40.5 % (34.2-44.1); HEMOGLOBIN 13.8 g/dL (12.0-16.0); MEAN CORPUSCULAR HEMOGLOBIN 28.6 pg (28-32); MEAN CORPUSCULAR HGB CONC 34.1 g/dL (31-35); RED CELL DISTRIBUTION WIDTH 13.8 % (11.7-14.4)
[2024-10-01 04:51] LABS: RED BLOOD COUNT 4.82 x10e6/uL (3.6-5.1)
[2024-10-01] MEDS ORDERED: IOPAMIDOL 370 MG/ML 100 ML INFUS..BTL INJ ONE (05:43)
[2024-10-01] MEDS ORDERED: ONDANSETRON HCL INJ 2MG/ML 2ML 2 MG/ML VIAL IV PRN (05:45)
[2024-10-01 09:02] LABS: ANION GAP 25.4 mmol/L (8-16); CALCIUM 8.1 mg/dL (8.4-10.2); CREATININE, SERUM 0.68 mg/dL (0.57-1.11); MAGNESIUM 1.3 MG/DL (1.3-2.1)
[2024-10-01 09:05] LABS: POTASSIUM 3.4 mmol/L (3.5-5.1)
[2024-10-01] MEDS: MAGNESIUM SULF 1GRAM/DEXTROSE 100 ML IV PRN ×2 (09:29→18:36)
[2024-10-01] MEDS: DEXTROSE 5%/0.45% SOD CHL 1,000 ML IV SCH (09:33)
[2024-10-01] MEDS: Morphine 4mg INJECTION 4 MG/ML INJ IV PRN (09:36)
[2024-10-01] MEDS: ONDANSETRON HCL INJ 2MG/ML 2ML 2 MG/ML VIAL IV PRN (09:36)
[2024-10-01 14:21] LABS: ANION GAP 19.2 mmol/L (8-16); BLOOD UREA NITROGEN < 5 mg/dL (7-26); CALCIUM 8.2 mg/dL (8.4-10.2); CARBON DIOXIDE 16 mmol/L (22-29); CHLORIDE 102 mmol/L (98-107); CREATININE, SERUM 0.54 mg/dL (0.57-1.11); EST GLOMERULAR FILTRATION RATE 121 ML/MIN (>=60); GLUCOSE 236 mg/dL (74-118); MAGNESIUM 1.8 MG/DL (1.3-2.1); SODIUM 134 mmol/L (136-145)
[2024-10-01 14:30] LABS: BUN/CREATININE RATIO 9 (6-25); POTASSIUM 3.2 mmol/L (3.5-5.1)
[2024-10-01] MEDS ORDERED: ALBUTEROL 90 MCG/ACT INHALER INH PRN (14:45)
[2024-10-01] MEDS ORDERED: BISACODYL 10 MG SUPP PR PRN (18:00)
[2024-10-01] MEDS ORDERED: ACETAMINOPHEN 325 MG TAB PO PRN (18:00)
[2024-10-01] MEDS ORDERED: POLYETHYLENE GLYCOL 3350 17 GM PACK PO PRN (18:00)
[2024-10-01] MEDS: SODIUM CHLORIDE FLUSH 10 ML SYR INJ PRN (18:36)
[2024-10-01] MEDS: POTASSIUM CHLORIDE 20MEQ/100ML 100 ML IV PRN (20:39)
[2024-10-02] VITALS (22 sets, daily range): BP systolic 127–165; BP diastolic 78–99; PULSE 91–104; RESP 9–17; TEMP 98.2–98.6; O2SAT 96–100
[2024-10-02 04:26] LABS: ANION GAP 14.3 mmol/L (8-16); BLOOD UREA NITROGEN < 5 mg/dL (7-26); CALCIUM 8.1 mg/dL (8.4-10.2); CARBON DIOXIDE 20 mmol/L (22-29); CHLORIDE 104 mmol/L (98-107); CREATININE, SERUM 0.57 mg/dL (0.57-1.11); EST GLOMERULAR FILTRATION RATE 119 ML/MIN (>=60); GLUCOSE 187 mg/dL (74-118); MAGNESIUM 1.8 MG/DL (1.3-2.1); SODIUM 135 mmol/L (136-145)
[2024-10-02 04:29] LABS: BUN/CREATININE RATIO 9 (6-25); POTASSIUM 3.3 mmol/L (3.5-5.1)
[2024-10-02 06:17] LABS: BASOPHILS % 0.3 % (0.0-1.0); EOSINOPHILS # (AUTO) 0.1 (0.0-0.4); EOSINOPHILS % 1.8 % (0.0-6.0); HEMATOCRIT 35.8 % (34.2-44.1); HEMOGLOBIN 12.2 g/dL (12.0-16.0); LYMPHOCYTES # (AUTO) 2.4 (1.0-3.2); LYMPHOCYTES % 33.1 % (18.0-39.1); MEAN CORPUSCULAR HEMOGLOBIN 27.9 pg (28-32); MEAN CORPUSCULAR HGB CONC 34.1 g/dL (31-35); MEAN CORPUSCULAR VOLUME 81.7 fL (81-99); MONOCYTES # (AUTO) 0.5 (0.2-0.8); MONOCYTES % 6.4 % (4.4-11.3); NEUTROPHILS # (AUTO) 4.3 (2.1-6.9); PLATELET COUNT 224 x10e3/uL (140-360); RED BLOOD COUNT 4.38 x10e6/uL (3.6-5.1); RED CELL DISTRIBUTION WIDTH 13.3 % (11.7-14.4); WHITE BLOOD COUNT 7.38 x10e3/uL (4.8-10.8)
[2024-10-02 06:44] LABS: CHOL/HDL RATIO 9.6 (3.0-3.6); CHOLESTEROL 260 MD/DL (0-199); HDL CHOLESTEROL 27 MG/DL (40-60); LIPASE 36 U/L (8-78)
[2024-10-02 07:16] LABS: TRIGLYCERIDES 1430 MG/DL (0-149)
[2024-10-02] MEDS: FENOFIBRATE 145 MG TAB PO SCH (08:39)
[2024-10-02 09:05] LABS: ANION GAP 14.7 mmol/L (8-16); BLOOD UREA NITROGEN < 5 mg/dL (7-26); CARBON DIOXIDE 19 mmol/L (22-29); CHLORIDE 104 mmol/L (98-107); CREATININE, SERUM 0.56 mg/dL (0.57-1.11); EST GLOMERULAR FILTRATION RATE 120 ML/MIN (>=60); GLUCOSE 210 mg/dL (74-118); MAGNESIUM 1.6 MG/DL (1.3-2.1); POTASSIUM 3.7 mmol/L (3.5-5.1); SODIUM 134 mmol/L (136-145)
[2024-10-02 09:15] LABS: BUN/CREATININE RATIO 9 (6-25)
[2024-10-02 12:49] LABS: ANION GAP 13.4 mmol/L (8-16); BLOOD UREA NITROGEN < 5 mg/dL (7-26); CALCIUM 8.1 mg/dL (8.4-10.2); CARBON DIOXIDE 21 mmol/L (22-29); CHLORIDE 105 mmol/L (98-107); CREATININE, SERUM 0.59 mg/dL (0.57-1.11); EST GLOMERULAR FILTRATION RATE 118 ML/MIN (>=60); GLUCOSE 169 mg/dL (74-118); MAGNESIUM 1.7 MG/DL (1.3-2.1); SODIUM 136 mmol/L (136-145)
[2024-10-02 12:50] LABS: BUN/CREATININE RATIO 8 (6-25); POTASSIUM 3.4 mmol/L (3.5-5.1)
[2024-10-02] MEDS: POTASSIUM CHLORIDE 20 MEQ TAB CR PO ONE ×2 (16:06→19:41)
[2024-10-02] MEDS: ENOXAPARIN SOD INJ 40 MG/0.4 ML SYR SC SCH (16:38)
[2024-10-02 17:43] LABS: ANION GAP 12.2 mmol/L (8-16); BLOOD UREA NITROGEN < 5 mg/dL (7-26); CALCIUM 7.9 mg/dL (8.4-10.2); CARBON DIOXIDE 20 mmol/L (22-29); CHLORIDE 106 mmol/L (98-107); EST GLOMERULAR FILTRATION RATE 118 ML/MIN (>=60); GLUCOSE 208 mg/dL (74-118); MAGNESIUM 1.9 MG/DL (1.3-2.1); SODIUM 135 mmol/L (136-145)
[2024-10-02 17:53] LABS: CHOL/HDL RATIO 8.5 (3.0-3.6); CHOLESTEROL 247 MD/DL (0-199); HDL CHOLESTEROL 29 MG/DL (40-60); TRIGLYCERIDES 1264 MG/DL (0-149)
[2024-10-02 18:02] LABS: BUN/CREATININE RATIO 8 (6-25); POTASSIUM 3.2 mmol/L (3.5-5.1)
[2024-10-02] MEDS: LOSARTAN POTASSIUM 25 MG TAB PO SCH (19:42)
[2024-10-02 21:54] LABS: ANION GAP 15.2 mmol/L (8-16); BLOOD UREA NITROGEN < 5 mg/dL (7-26); BUN/CREATININE RATIO 8 (6-25); CALCIUM 8.1 mg/dL (8.4-10.2); CARBON DIOXIDE 19 mmol/L (22-29); CHLORIDE 105 mmol/L (98-107); EST GLOMERULAR FILTRATION RATE 118 ML/MIN (>=60); GLUCOSE 186 mg/dL (74-118); SODIUM 136 mmol/L (136-145)
[2024-10-02 21:57] LABS: POTASSIUM 3.2 mmol/L (3.5-5.1)
[2024-10-02] MEDS: POTASSIUM CHLORIDE 20 MEQ TAB CR PO STA (23:12)
[2024-10-02] MEDS: MAGNESIUM SULF 1GRAM/DEXTROSE 100 ML IV ONE (23:13)
[2024-10-03] VITALS (29 sets, daily range): BP systolic 114–156; BP diastolic 67–104; PULSE 88–110; RESP 10–22; TEMP 97.3–98.4; O2SAT 97–100
[2024-10-03 02:13] LABS: BLOOD UREA NITROGEN < 5 mg/dL (7-26); BUN/CREATININE RATIO 9 (6-25); CALCIUM 8.1 mg/dL (8.4-10.2); CARBON DIOXIDE 21 mmol/L (22-29); CHLORIDE 106 mmol/L (98-107); CREATININE, SERUM 0.56 mg/dL (0.57-1.11); EST GLOMERULAR FILTRATION RATE 120 ML/MIN (>=60); GLUCOSE 188 mg/dL (74-118); SODIUM 136 mmol/L (136-145)
[2024-10-03 06:04] LABS: BASOPHILS % 0.4 % (0.0-1.0); EOSINOPHILS # (AUTO) 0.1 (0.0-0.4); EOSINOPHILS % 1.4 % (0.0-6.0); HEMATOCRIT 38.8 % (34.2-44.1); LYMPHOCYTES # (AUTO) 4.1 (1.0-3.2); LYMPHOCYTES % 44.4 % (18.0-39.1); MEAN CORPUSCULAR HEMOGLOBIN 28.2 pg (28-32); MEAN CORPUSCULAR HGB CONC 33.5 g/dL (31-35); MEAN CORPUSCULAR VOLUME 84.2 fL (81-99); MONOCYTES # (AUTO) 0.7 (0.2-0.8); MONOCYTES % 7.3 % (4.4-11.3); NEUTROPHILS # (AUTO) 4.2 (2.1-6.9); PLATELET COUNT 275 x10e3/uL (140-360); RED BLOOD COUNT 4.61 x10e6/uL (3.6-5.1); RED CELL DISTRIBUTION WIDTH 13.6 % (11.7-14.4); WHITE BLOOD COUNT 9.23 x10e3/uL (4.8-10.8)
[2024-10-03 06:31] LABS: ANION GAP 12.4 mmol/L (8-16); BLOOD UREA NITROGEN < 5 mg/dL (7-26); CALCIUM 8.5 mg/dL (8.4-10.2); CARBON DIOXIDE 22 mmol/L (22-29); CHLORIDE 105 mmol/L (98-107); CREATININE, SERUM 0.56 mg/dL (0.57-1.11); EST GLOMERULAR FILTRATION RATE 120 ML/MIN (>=60); GLUCOSE 98 mg/dL (74-118); MAGNESIUM 1.9 MG/DL (1.3-2.1); SODIUM 136 mmol/L (136-145)
[2024-10-03 06:33] LABS: CHOL/HDL RATIO 8.7 (3.0-3.6); CHOLESTEROL 262 MD/DL (0-199); HDL CHOLESTEROL 30 MG/DL (40-60); TRIGLYCERIDES 1253 MG/DL (0-149)
[2024-10-03 07:04] LABS: BUN/CREATININE RATIO 9 (6-25); POTASSIUM 3.4 mmol/L (3.5-5.1)
[2024-10-03] MEDS: POTASSIUM CHLORIDE 20 MEQ TAB CR PO STA (08:50)
[2024-10-03] MEDS: LABETALOL HCL 5 MG/ML 20ML VIAL IV PRN (09:09)
[2024-10-03] MEDS: FENOFIBRATE 145 MG TAB PO SCH (09:15)
[2024-10-03 10:21] LABS: ANION GAP 14.6 mmol/L (8-16); BLOOD UREA NITROGEN < 5 mg/dL (7-26); CALCIUM 8.5 mg/dL (8.4-10.2); CARBON DIOXIDE 18 mmol/L (22-29); CHLORIDE 107 mmol/L (98-107); CREATININE, SERUM 0.56 mg/dL (0.57-1.11); EST GLOMERULAR FILTRATION RATE 120 ML/MIN (>=60); GLUCOSE 153 mg/dL (74-118); MAGNESIUM 1.7 MG/DL (1.3-2.1); POTASSIUM 3.6 mmol/L (3.5-5.1); SODIUM 136 mmol/L (136-145)
[2024-10-03 10:25] LABS: BUN/CREATININE RATIO 9 (6-25)
[2024-10-03] MEDS: CRESTOR 10MG PO SCH (13:00)
[2024-10-03 14:08] LABS: ANION GAP 11.7 mmol/L (8-16); BLOOD UREA NITROGEN < 5 mg/dL (7-26); BUN/CREATININE RATIO 9 (6-25); CALCIUM 8.7 mg/dL (8.4-10.2); CARBON DIOXIDE 20 mmol/L (22-29); CHLORIDE 107 mmol/L (98-107); CREATININE, SERUM 0.54 mg/dL (0.57-1.11); EST GLOMERULAR FILTRATION RATE 121 ML/MIN (>=60); GLUCOSE 143 mg/dL (74-118); POTASSIUM 3.7 mmol/L (3.5-5.1); SODIUM 135 mmol/L (136-145)
[2024-10-03 18:18] LABS: ANION GAP 13.5 mmol/L (8-16); BLOOD UREA NITROGEN < 5 mg/dL (7-26); BUN/CREATININE RATIO 9 (6-25); CALCIUM 8.7 mg/dL (8.4-10.2); CARBON DIOXIDE 20 mmol/L (22-29); CHLORIDE 106 mmol/L (98-107); CREATININE, SERUM 0.56 mg/dL (0.57-1.11); EST GLOMERULAR FILTRATION RATE 120 ML/MIN (>=60); GLUCOSE 141 mg/dL (74-118); MAGNESIUM 1.7 MG/DL (1.3-2.1); POTASSIUM 3.5 mmol/L (3.5-5.1); SODIUM 136 mmol/L (136-145)
[2024-10-03 18:28] LABS: CHOL/HDL RATIO 7.6 (3.0-3.6); CHOLESTEROL 250 MD/DL (0-199); HDL CHOLESTEROL 33 MG/DL (40-60); TRIGLYCERIDES 1087 MG/DL (0-149)
[2024-10-03] MEDS ORDERED: POTASSIUM CHLORIDE 20 MEQ TAB CR PO PRN (19:15)
[2024-10-03 22:54] LABS: BLOOD UREA NITROGEN < 5 mg/dL (7-26); BUN/CREATININE RATIO 9 (6-25); CALCIUM 9.1 mg/dL (8.4-10.2); CARBON DIOXIDE 20 mmol/L (22-29); CHLORIDE 105 mmol/L (98-107); CREATININE, SERUM 0.56 mg/dL (0.57-1.11); EST GLOMERULAR FILTRATION RATE 120 ML/MIN (>=60); GLUCOSE 76 mg/dL (74-118); SODIUM 138 mmol/L (136-145)
[2024-10-03] MEDS: POTASSIUM CHLORIDE 20 MEQ TAB CR PO PRN (23:27)
[2024-10-04] VITALS (19 sets, daily range): BP systolic 122–160; BP diastolic 70–96; PULSE 94–117; RESP 10–20; TEMP 97.3–98.3; O2SAT 96–100
[2024-10-04 02:07] LABS: ANION GAP 13.6 mmol/L (8-16); BLOOD UREA NITROGEN < 5 mg/dL (7-26); BUN/CREATININE RATIO 9 (6-25); CALCIUM 8.5 mg/dL (8.4-10.2); CARBON DIOXIDE 21 mmol/L (22-29); CHLORIDE 105 mmol/L (98-107); CREATININE, SERUM 0.55 mg/dL (0.57-1.11); EST GLOMERULAR FILTRATION RATE 120 ML/MIN (>=60); GLUCOSE 106 mg/dL (74-118); MAGNESIUM 1.7 MG/DL (1.3-2.1); POTASSIUM 3.6 mmol/L (3.5-5.1); SODIUM 136 mmol/L (136-145)
[2024-10-04 07:03] LABS: ANION GAP 13.6 mmol/L (8-16); BLOOD UREA NITROGEN < 5 mg/dL (7-26); BUN/CREATININE RATIO 9 (6-25); CALCIUM 8.6 mg/dL (8.4-10.2); CARBON DIOXIDE 21 mmol/L (22-29); CHLORIDE 105 mmol/L (98-107); CREATININE, SERUM 0.53 mg/dL (0.57-1.11); EST GLOMERULAR FILTRATION RATE 121 ML/MIN (>=60); GLUCOSE 115 mg/dL (74-118); MAGNESIUM 1.9 MG/DL (1.3-2.1); POTASSIUM 3.6 mmol/L (3.5-5.1); SODIUM 136 mmol/L (136-145)
[2024-10-04 07:25] LABS: CHOL/HDL RATIO 7.9 (3.0-3.6); CHOLESTEROL 254 MD/DL (0-199); HDL CHOLESTEROL 32 MG/DL (40-60); TRIGLYCERIDES 855 MG/DL (0-149)
[2024-10-04] MEDS ORDERED: CRESTOR 10MG PO SCH (09:00)
[2024-10-04] MEDS ORDERED: DEXTROSE 50% SYRINGE 50 ML IV PRN (13:00)
[2024-10-04] MEDS: NPH, HUMAN INSULIN ISOPHANE 100 UNIT/1 ML 3ML VIAL SQ ONE (13:31)
[2024-10-04] MEDS ORDERED: COZAAR25 MG PO (14:46)
[2024-10-04] MEDS ORDERED: Rosuvastatin Calcium PO (14:46)
[2024-10-04] MEDS: INSULIN LISPRO 100 UNIT/1 ML 3ML VIAL SQ SCH (16:36)
[2024-10-04] MEDS: NPH, HUMAN INSULIN ISOPHANE 100 UNIT/1 ML 3ML VIAL SQ SCH (16:50)
[2024-10-04] MEDS ORDERED: NPH, HUMAN INSULIN ISOPHANE 100 UNIT/1 ML 3ML VIAL SQ SCH ×2 (17:00→21:00)
== END 2024-10-04 18:15 | disposition home or self-care (01) | DRG 638 ==
LOC: ER 02:58 → ERHOLD 05:21 → ICU 13:45
PROVIDERS: ADMIT Internal Medicine; ATTEND Internal Medicine
DX: E11.10 Type 2 diabetes mellitus with ketoacidosis without coma (principal); N39.0 Urinary tract infection, site not specified; E66.811 Obesity, class 1; E78.1 Pure hyperglyceridemia; E78.5 Hyperlipidemia, unspecified; R10.13 Epigastric pain; Z68.30 Body mass index [BMI] 30.0-30.9, adult; Z90.49 Acquired absence of other specified parts of digestive tract; Z90.721 Acquired absence of ovaries, unilateral; Z79.4 Long term (current) use of insulin; Z79.84 Long term (current) use of oral hypoglycemic drugs
CPT/HCPCS: 36415; 70450; 74177; 80048; 80053; 80061; 81001; 82948; 83036; 83690; 83735; 84484; 84702; 85025; 93005; 94799; 99285; J1630; J1650; J2270; J2405; J2470; J3475; J3480; J7030; J7050; Q9967

== ENCOUNTER 2025-02-05 18:38 | Inpatient (IN) | payer SELFPAY ==
[~2025-02-05] VITALS: Ht 160 cm; Wt 77.6 kg
[~2025-02-05 18:38] MED LIST changes: +COZAAR25 MG PO; +Rosuvastatin Calcium PO
[2025-02-05 19:20] VITALS: TEMP 98.9
[2025-02-05] MEDS: Morphine 4mg INJECTION 4 MG/ML INJ IV ONE (19:49)
[2025-02-05] MEDS: ONDANSETRON HCL INJ 2MG/ML 2ML 2 MG/ML VIAL IV STA (19:49)
[2025-02-05] MEDS: SODIUM CHLORIDE 0.9% 1000ML 1,000 ML IV ONE (19:49)
[2025-02-05 20:05] VITALS: PULSE 114; RESP 14; O2SAT 100
[2025-02-05 20:43] LABS: BASOPHILS % 0.2 % (0.0-1.0); EOSINOPHILS % 0.4 % (0.0-6.0); LYMPHOCYTES % 16.8 % (18.0-39.1); MONOCYTES % 4.4 % (4.4-11.3); NEUTROPHILS % 77.7 % (38.7-80.0); RED CELL DISTRIBUTION WIDTH 12.7 % (11.7-14.4)
[2025-02-05 21:01] VITALS: PULSE 93; RESP 18
[2025-02-05 21:11] LABS: ABG PCO2 36 mmHg (35-45); ABG PH 7.42 (7.35-7.45)
[2025-02-05 21:12] LABS: ABG BASE EXCESS -1.0 mmol/L (-2 - 3); ABG HCO3 23 mmol/L (22-26); ABG OXYGEN SATURATION 95.0 % (95-98); ABG PO2 72 mmHg (80-105); ABG TCO2 24
[2025-02-05] MEDS ORDERED: DEXTROSE 50% SYRINGE 50 ML IV PRN (21:45)
[2025-02-05] MEDS ORDERED: INSULIN REGULAR, HUMAN 3ML VL 100 UNIT in SODIUM CHLORIDE 0.45% 100 ML 100 ML IV SCH (21:45)
[2025-02-05] MEDS: MUPIROCIN 2% OINT 22 GM TUBE TOP SCH (22:13)
[2025-02-05] MEDS: SODIUM CHLORIDE 0.9% 1000ML 1,000 ML IV SCH (22:14)
[2025-02-05] MEDS: ONDANSETRON HCL INJ 2MG/ML 2ML 2 MG/ML VIAL IV PRN (22:14)
[2025-02-05] MEDS: Morphine 4mg INJECTION 4 MG/ML INJ IV PRN (22:14)
[2025-02-05] MEDS: INSULIN REGULAR, HUMAN 3ML VL 100 UNIT in SODIUM CHLORIDE 0.9% 100 ML IV SCH (22:15)
[2025-02-05] MEDS: DEXTROSE 50% SYRINGE 50 ML IV PRN (22:32)
[2025-02-05 22:38] LABS: LEUKOCYTE ESTERASE ,URINE NEGATIVE (NEGATIVE); PROTEIN,URINE DIPSTICK 1+ (NEGATIVE); URINE UROBILINOGEN 0.2 mg/dL (0.2 - 1)
[2025-02-05 22:44] LABS: WBC,URINE (MAN) 0-5 /HPF (0-5)
[2025-02-05 22:45] LABS: EPITHELIAL CELLS,URINE MODERATE /LPF
[2025-02-05 23:00] VITALS: BP 169/89; PULSE 114; RESP 14; TEMP 98.4; O2SAT 96
[2025-02-06] VITALS (26 sets, daily range): BP systolic 116–169; BP diastolic 72–96; PULSE 84–114; RESP 10–21; TEMP 98–98.4; O2SAT 89–98
[2025-02-06 06:38] LABS: BASOPHILS % 0.2 % (0.0-1.0); EOSINOPHILS % 0.8 % (0.0-6.0); LYMPHOCYTES % 25.0 % (18.0-39.1); MONOCYTES % 6.0 % (4.4-11.3); NEUTROPHILS % 67.6 % (38.7-80.0); RED CELL DISTRIBUTION WIDTH 12.9 % (11.7-14.4)
[2025-02-06 07:29] LABS: EST GLOMERULAR FILTRATION RATE 118 ML/MIN (>=60)
[2025-02-06 07:34] LABS: CHOL/HDL RATIO 31.3 (3.0-3.6)
[2025-02-06] MEDS: POTASSIUM CHLORIDE 20 MEQ TAB CR PO ONE (10:10)
[2025-02-06] MEDS: DEXTROSE 5%/0.45% SOD CHL 1,000 ML IV SCH (10:10)
[2025-02-06 15:07] LABS: EST GLOMERULAR FILTRATION RATE 114.0 ML/MIN (>=60)
[2025-02-06] MEDS ORDERED: DEXTROSE 50% SYRINGE 50 ML IV PRN (16:15)
[2025-02-06] MEDS ORDERED: HYDRALAZINE HCL 20 MG/ML VIAL IV PRN (16:15)
[2025-02-06] MEDS ORDERED: BENZONATATE 100 MG CAP PO PRN (16:15)
[2025-02-06] MEDS ORDERED: DOCUSATE SODIUM 100 MG CAP PO PRN (16:15)
[2025-02-06] MEDS ORDERED: LIDOCAINE 4% PATCH TP PRN (16:15)
[2025-02-06] MEDS ORDERED: DIPHENHYDRAMINE HCL 25 MG CAP PO PRN (16:15)
[2025-02-06] MEDS ORDERED: SIMETHICONE 80 MG CHEW PO PRN (16:15)
[2025-02-06] MEDS ORDERED: ALBUTEROL/IPRATROPIUM 3 ML NEB NEB PRN (16:15)
[2025-02-06] MEDS ORDERED: MELATONIN 5 MG TABLET PO PRN (16:15)
[2025-02-06] MEDS ORDERED: IOPAMIDOL 370 MG/ML 100 ML INFUS..BTL INJ ONE (16:29)
[2025-02-06] MEDS: ENOXAPARIN SOD INJ 40 MG/0.4 ML SYR SC SCH (16:41)
[2025-02-06] MEDS: FENOFIBRATE 145 MG TAB PO ONE (16:41)
[2025-02-07] VITALS (28 sets, daily range): BP systolic 127–157; BP diastolic 75–128; PULSE 84–106; RESP 12–22; TEMP 97.8–98.4; O2SAT 95–100
[2025-02-07 04:55] LABS: BASOPHILS % 0.1 % (0.0-1.0); EOSINOPHILS % 1.3 % (0.0-6.0); LYMPHOCYTES % 16.5 % (18.0-39.1); MONOCYTES % 8.7 % (4.4-11.3); NEUTROPHILS % 73.0 % (38.7-80.0); RED CELL DISTRIBUTION WIDTH 12.8 % (11.7-14.4)
[2025-02-07 05:31] LABS: EST GLOMERULAR FILTRATION RATE 118 ML/MIN (>=60)
[2025-02-07] MEDS: FENOFIBRATE 145 MG TAB PO SCH (08:00)
[2025-02-07] MEDS: PANTOPRAZOLE SOD 40 MG TABEC PO SCH (08:00)
[2025-02-07] MEDS: POTASSIUM CHLORIDE 20 MEQ TAB CR PO PRN (12:01)
[2025-02-08] VITALS (23 sets, daily range): BP systolic 113–156; BP diastolic 65–101; PULSE 85–111; RESP 0–28; TEMP 97.9–98; O2SAT 94–100
[2025-02-08 05:32] LABS: BASOPHILS % 0.2 % (0.0-1.0); EOSINOPHILS % 2.2 % (0.0-6.0); LYMPHOCYTES % 32.1 % (18.0-39.1); MONOCYTES % 7.7 % (4.4-11.3); NEUTROPHILS % 57.2 % (38.7-80.0); RED CELL DISTRIBUTION WIDTH 12.8 % (11.7-14.4)
[2025-02-08 06:11] LABS: CHOL/HDL RATIO 20.9 (3.0-3.6); EST GLOMERULAR FILTRATION RATE 118 ML/MIN (>=60)
[2025-02-09] VITALS (29 sets, daily range): BP systolic 114–170; BP diastolic 66–115; PULSE 75–113; RESP 0–23; TEMP 98–98.5; O2SAT 93–100
[2025-02-09 05:46] LABS: BASOPHILS % 0.4 % (0.0-1.0); EOSINOPHILS % 2.5 % (0.0-6.0); LYMPHOCYTES % 36.6 % (18.0-39.1); MONOCYTES % 8.5 % (4.4-11.3); NEUTROPHILS % 50.9 % (38.7-80.0); RED CELL DISTRIBUTION WIDTH 12.9 % (11.7-14.4)
[2025-02-09 06:25] LABS: EST GLOMERULAR FILTRATION RATE 118 ML/MIN (>=60)
[2025-02-09 10:51] LABS: ABG BASE EXCESS -1.0 mmol/L (-2 - 3); ABG HCO3 23 mmol/L (22-26); ABG OXYGEN SATURATION 95.0 % (95-98); ABG PCO2 36 mmHg (35-45); ABG PH 7.42 (7.35-7.45); ABG PO2 72 mmHg (80-105); ABG TCO2 24
[2025-02-10] VITALS (27 sets, daily range): BP systolic 128–160; BP diastolic 82–111; PULSE 81–100; RESP 10–30; TEMP 98.1–98.5; O2SAT 94–100
[2025-02-10 05:20] LABS: BASOPHILS % 0.5 % (0.0-1.0); EOSINOPHILS % 2.2 % (0.0-6.0); LYMPHOCYTES % 36.5 % (18.0-39.1); MONOCYTES % 7.3 % (4.4-11.3); NEUTROPHILS % 52.4 % (38.7-80.0); RED CELL DISTRIBUTION WIDTH 12.7 % (11.7-14.4)
[2025-02-10 05:53] LABS: EST GLOMERULAR FILTRATION RATE 115.0 ML/MIN (>=60)
[2025-02-11] VITALS (23 sets, daily range): BP systolic 109–178; BP diastolic 63–101; PULSE 82–106; RESP 8–27; TEMP 97.9–98.2; O2SAT 94–100
[2025-02-11 07:03] LABS: EST GLOMERULAR FILTRATION RATE 116.0 ML/MIN (>=60)
[2025-02-11] MEDS: ATORVASTATIN 40 MG TAB PO SCH (21:10)
[2025-02-12] VITALS (23 sets, daily range): BP systolic 124–154; BP diastolic 74–100; PULSE 79–99; RESP 0–29; TEMP 98–98.6; O2SAT 96–100
[2025-02-12 07:30] LABS: BASOPHILS % 0.3 % (0.0-1.0); EOSINOPHILS % 1.8 % (0.0-6.0); LYMPHOCYTES % 34.3 % (18.0-39.1); MONOCYTES % 7.3 % (4.4-11.3); NEUTROPHILS % 54.6 % (38.7-80.0); RED CELL DISTRIBUTION WIDTH 12.9 % (11.7-14.4)
[2025-02-12 07:53] LABS: EST GLOMERULAR FILTRATION RATE 117.0 ML/MIN (>=60)
[2025-02-12] MEDS ORDERED: DEXTROSE 50% SYRINGE 50 ML IV PRN (10:30)
[2025-02-12] MEDS: INSULIN REGULAR, HUMAN 100 UNIT/1 ML SQ SCH (12:06)
[2025-02-12] MEDS: OMEGA 3 POLYUNSAT FATTY ACIDS 1000 MG SOFTGEL PO SCH (16:33)
[2025-02-12] MEDS ORDERED: INSULIN GLARGINE 100 UNITS/ML VIAL SQ SCH (21:00)
[2025-02-12] MEDS: EZETIMIBE 10 MG TAB PO SCH (21:43)
[2025-02-12] MEDS: INSULIN GLARGINE 100 UNITS/ML VIAL SQ SCH (21:46)
[2025-02-13] VITALS (12 sets, daily range): BP systolic 140–166; BP diastolic 62–94; PULSE 79–93; RESP 15–23; TEMP 98–98.2; O2SAT 93–99
[2025-02-13] MEDS: ACETAMINOPHEN 325 MG TAB PO PRN (06:27)
[2025-02-13 07:43] LABS: EST GLOMERULAR FILTRATION RATE 115.0 ML/MIN (>=60)
[2025-02-13] MEDS: INSULIN GLARGINE 100 UNITS/ML VIAL SQ SCH (08:24)
[2025-02-13] MEDS: LOSARTAN POTASSIUM 25 MG TAB PO SCH (14:23)
== END 2025-02-13 15:30 | disposition home or self-care (01) | DRG 642 ==
LOC: ER 19:32 → ERHOLD 21:51 → ICU 22:44
PROVIDERS: ADMIT Internal Medicine; ATTEND Internal Medicine
PROC: 4A033B1 Measurement of Arterial Pressure, Peripheral, Percutaneous Approach (ICD-10-PCS; principal; 2025-02-05)
DX: E78.1 Pure hyperglyceridemia (principal); K85.90 Acute pancreatitis without necrosis or infection, unspecified; E78.5 Hyperlipidemia, unspecified; D64.9 Anemia, unspecified; E11.65 Type 2 diabetes mellitus with hyperglycemia; T38.3X6A Underdosing of insulin and oral hypoglycemic [antidiabetic] drugs, initial encounter; D28.7 Benign neoplasm of other specified female genital organs; Z79.4 Long term (current) use of insulin; Z79.84 Long term (current) use of oral hypoglycemic drugs; Z79.51 Long term (current) use of inhaled steroids; Y92.009 Unspecified place in unspecified non-institutional (private) residence as the place of occurrence of the external cause
CPT/HCPCS: 36415; 36600; 74177; 80048; 80053; 80061; 81001; 82550; 82805; 82948; 83036; 83690; 84478; 84484; 84702; 85025; 93005; 94799; 96372; 99252; 99284; J1650; J1815; J2270; J2405; J2470; J7030; J7050; Q9967